=== PATIENT | female | born 1980 | race Hispanic/Latino ===

== ENCOUNTER 2022-03-24 18:41 | Emergency (ER) | payer OTHER ==
[2022-03-24] MEDS ORDERED: Ibuprofen 200 MG TAB ONE (19:41)
== END 2022-03-24 20:53 | disposition home or self-care (01) ==
LOC: CSHERS 18:41
DX: S00.83XA Contusion of other part of head, initial encounter (principal); K02.9 Dental caries, unspecified; K29.70 Gastritis, unspecified, without bleeding; Y04.0XXA Assault by unarmed brawl or fight, initial encounter
CPT/HCPCS: 70486; 76377